=== PATIENT | male | born 1955 | race Hispanic/Latino ===

== ENCOUNTER 2020-01-19 08:36 | Emergency (ER) | payer MEDICARE ==
[~2020-01-19] VITALS: Ht 162.6 cm; Wt 94.0 kg
[~2020-01-19 08:36] MED LIST: LORTAB 5/3255 MG PO; NAPROSYN500 MG PO; PERCOCET 5/325M1 TAB PO
[2020-01-19] MEDS ORDERED: NAPROXEN DR500 MG PO ×2 (10:58)
[2020-01-19 11:20] VITALS: BP 141/88
== END 2020-01-19 11:26 | disposition home or self-care (01) ==
LOC: ED 08:36
DX: M77.31 Calcaneal spur, right foot (principal)

== ENCOUNTER 2020-03-03 13:42 | Emergency (ER) | payer MEDICARE ==
[~2020-03-03] VITALS: Ht 162.6 cm; Wt 106.0 kg
[~2020-03-03 13:42] MED LIST changes: +NAPROXEN DR500 MG PO
[2020-03-03 15:05] VITALS: BP 132/73
== END 2020-03-03 15:00 | disposition home or self-care (01) ==
LOC: ED 13:42
DX: Z03.89 Encounter for observation for other suspected diseases and conditions ruled out (principal)

== ENCOUNTER 2020-03-23 12:11 | Emergency (ER) | payer MEDICARE ==
[~2020-03-23] VITALS: Ht 162.6 cm; Wt 100.0 kg
[2020-03-23 12:46] LABS: HEMATOCRIT 39.9 % (39.0-50.0); HEMOGLOBIN 12.8 g/dl (14.0-18.0); IMMATURE GRANULOCYTES 0.3 % (0.0-5.0); MEAN CELL VOLUME 87.1 fL CALC (80.0-100.0); MEAN CORPUSCULAR HGB 27.9 pG CALC (26.0-32.0); MEAN CORPUSCULAR HGB CONC 32.1 g/dL CAL (32.0-36.0); NEUT# 9.95 thou/uL (1.82-7.42); RED BLOOD COUNT 4.58 mill/uL (4.70-6.10); RED CELL DISTRI WIDTH 13.7 % (11.5-15.5)
[2020-03-23 13:13] LABS: ALBUMIN 4.3 g/dL (3.2-5.0); ALKALINE PHOSPHATASE 103 u/l (38-126); ANION GAP 14 (6-22 (CALC)); BILIRUBIN, TOTAL 0.5 mg/dL (0.0-1.4); BUN 17 mg/dL (8-23); CHLORIDE 100 mmol/l (95-108); SGOT/AST 20 u/l (19-48); SODIUM 135 mmol/l (137-146); TOTAL PROTEIN 7.7 g/dL (6.3-8.2)
[2020-03-23 13:14] LABS: BUN/CREATININE RATIO 21 (12-20 (CALC)); CARBON DIOXIDE 25 mmol/l (22-30); CREATININE 0.8 mg/dL (0.7-1.3); GFR > 60 ML/MIN (>=60 (CALC)); GFR FOR AFR.AMER. > 60 ML/MIN (>=60 (CALC))
[2020-03-23] MEDS ORDERED: NAPROXEN375 MG PO (14:29)
[2020-03-23 15:00] VITALS: BP 136/79
== END 2020-03-23 15:00 | disposition home or self-care (01) ==
LOC: ED 12:11
DX: M25.562 Pain in left knee (principal); M25.462 Effusion, left knee

== ENCOUNTER 2020-08-10 21:04 | Emergency (ER) | payer MEDICARE ==
[~2020-08-10 21:04] MED LIST changes: +NAPROXEN375 MG PO
== END 2020-08-10 21:34 | disposition left against medical advice (07) ==
LOC: ED 21:04 → LWOBS 21:34
DX: Z53.21 Procedure and treatment not carried out due to patient leaving prior to being seen by health care provider (principal)